=== PATIENT | male | born 1965 | race Caucasian/White ===

== ENCOUNTER 2018-05-14 20:24 | Emergency (ER) | payer MEDICAID, SELFPAY ==
[2018-05-14 20:34] VITALS: BP 147/123; PULSE 123; RESP 16; TEMP 36.9; O2SAT 95
[2018-05-14 20:41] VITALS: RESP 16
--- NOTE | 2018-05-14 20:44 | ED.GENADUL_ITS ---
Disposition Clinical Impression: Alcohol intoxication Disposition: [facility] Condition: Stable Instructions: Alcohol Intoxication (ED) Medical Decision Making - Lab Data Results reviewed for labs ordered during visit: Yes - EKG Data -: EKG Interpreted by Me EKG shows normal: sinus rhythm, axis, intervals, QRS complexes Rate: tachycardia Interpretation: no acute changes - Medical Decision Making Pt here with complaint of being intoxicated which on exam he is and depressed. Will send labs and monitor. HE appears anxious on exam and will treat with oral ativan. HE has chronic pain that is unchanged, do not suspect acute medical process causing his pain. Pt remains stable, labs unremarkable other than anion gap of 17 likely due to alcohol ketosis, etoh level is 96. Discussed with mental health and they are coming to evaluate, he is medically cleared to speak with them. Mental health evaluate and patient will be transferred to detention for alcohol intoxication, will be reevaluated when sober. Pt's current HR is 88 on my exam, and at this time has no complaints, is drinking fluids without problems here and has normal physical exam, normal lung exam, no abdominal pain and is cao4 - Differential Diagnosis depression, alcohol intoxication History of Present Illness - General Chief complaint: PsychEval Stated complaint: CHEST PAIN Time Seen by Provider: 05/14/18 20:29 Source: patient Mode of arrival: ambulatory Limitations: no limitations - History of Present Illness Initial comments: 53 yo male with hx of alcohol abuse comes in with chief complaint of I'm drunk. He states he has been drinking all day and starts crying during my exam, stating he wants to . Has no specific plans on my exam. He is complaining of pain everywhere and no where in particular. He denies chest pain or pressure on my exam or shortness of breath. HE has hx of chronic pain and states this pain is the same MD Complaint: intoxication Onset/Timin -: days(s) Improves with: none Worsens with: none - Related Data Buprenorphine/Naloxone [Suboxone 2 mg-0.5 mg Sl Film] 8 mg SL DAILY 12/10/15 Blood-Glucose Meter [Tiendeotouch Ultra2] 1 each as directed #1 kit 12/28/16 Aspirin 81 mg PO DAILY #90 tab-cap 03/30/17 Blood Sugar Diagnostic [Onetouch Ultra Blue Test Strp] 1 each BID #180 strip 10/21/17 Lancets [Onetouch Delica] 1 each ID BID #200 each 10/21/17 Blood-Glucose Meter [Onetouch Ultramini] 1 each MC DAILY #1 kit 01/09/18 Naltrexone HCl 50 mg PO DAILY tab-cap 01/13/18 Atorvastatin [Lipitor] 40 mg PO QPM #30 tab 05/08/18 Gabapentin [Neurontin] 300 mg PO BID #60 cap 05/08/18 Glipizide 10 mg PO BID #60 tab-cap 05/08/18 Lisinopril 30 mg PO DAILY #30 tab-cap 05/08/18 Magnesium Oxide [Mag-Ox 400] 800 mg PO BID@1000,2200 #60 tab 05/08/18 Metformin HCl 1,000 mg PO BID #60 tab-cap 05/08/18 Pantoprazole Sodium 40 mg PO DAILY #30 tab-cap 05/08/18 Propranolol HCl 30 mg PO BID #30 tab 05/08/18 Topiramate [Topamax] 50 mg PO DAILY #30 tab-cap 05/08/18 Venlafaxine HCl [Venlafaxine HCl ER] 75 mg PO DAILY #30 tab-cap 05/08/18 Allergies Allergy/AdvReac Type Severity Reaction Status Date / Time cephalexin monohydrate AdvReac Severe GI UPSET Unverified 05/14/18 20:38 [From Keflex] eszopiclone [From Lunesta] AdvReac bad taste Unverified 05/14/18 20:38 in mouth Review of Systems Constitutional: denies: fever Respiratory: denies: shortness of breath Cardiovascular: denies: chest pain Gastrointestinal: denies: abdominal pain, nausea, vomiting Musculoskeletal: denies: back pain Skin: denies: rash Neurological: denies: headache Psychiatric: depression, suicidal thoughts Comment: All other systems reviewed and negative Past Medical History - Past Medical History Medical history: CVA/TIA, diabetes, hyperlipidemia, hypertension - Social History Alcohol use: heavy, recent Drug use: none General Exam - General Limitations: no limitations General appearance: alert, other (crying) - Head Head exam: Present: atraumatic - Eye Eye exam: Present: normal apperance - ENT ENT exam: Present: mucous membranes moist - Neck Neck exam: Present: normal inspection - Respiratory Respiratory exam: Absent: respiratory distress - Cardiovascular Cardiovascular Exam: Present: normal rhythm, tachycardia, normal heart sounds - GI/Abdominal GI/Abdominal exam: Present: soft. Absent: tenderness - Extremities Exam Extremities exam: Present: normal inspection. Absent: pedal edema, calf tenderness - Neurological Exam Neurological exam: Present: alert, oriented X3 - Psychiatric Psychiatric exam: Present: depressed, suicidal ideation. Absent: homicidal ideation - Skin Skin exam: Present: warm Course Vital Signs - 24 hr 05/14/18 20:34 Temperature 98.4 F Pulse 123 H Respiratory 16 Rate Blood Pressure 147/123 Pulse Oximetry 95
[2018-05-14] MEDS: LORazepam 1 MG TAB PO (20:54)
[2018-05-14 21:33] LABS: *AMPHETAMINES SCREEN URINE Negative (Negative); *BARBITURATES SCREEN URINE Negative (Negative); *BENZODIAZEPINES SCREEN URINE Negative (Negative); Cannabinoids THC POSITIVE (Negative); Cocaine Screen,Urine Negative (Negative); METHADONE URINE SCREEN Negative (Negative); OPIATES URINE SCREEN Negative (Negative)
[2018-05-14 21:37] LABS: ALT 23 U/L (12-78); AST 13 U/L (15-37); Albumin 3.7 g/dL (3.4-5.0); Alkaline Phosphatase 57 U/L (46-116); Anion Gap 17.1 mmol/L (3-11); BUN 25 mg/dL (7-18); Bilirubin, Total 0.2 mg/dL (0.2-1.0); CO2 18.9 mmol/L (21.0-32.0); CREATININE 1.09 mg/dL (0.70-1.30); Chloride 105 mmol/L (98-107); ETHANOL BLOOD 96.2 mg/dL (<3); Glucose 92 mg/dL (70-100); Sodium 141 mmol/L (136-145); Total Protein 7.8 g/dL (6.4-8.2)
[2018-05-14 21:44] LABS: Tricyclic Antidepressants Negative (Negative)
[2018-05-14 21:46] LABS: Abs Immature Grans 0.02 k/cumm (0.0-0.09); Absolute Basophil Count 0.04 k/cumm (0.0-0.2); Absolute Eosinophil Count 0.06 k/cumm (0.0-0.7); Absolute Lymphocyte Count 2.98 k/cumm (1.2-3.4); Absolute Monocyte Count 0.52 k/cumm (0.11-0.7); Basophils % 0.4; Eosinophils % 0.6; HCT 41.7 % (40.0-50.0); HGB 14.1 g/dL (13.5-17.5); Immature Grans % 0.2; Mean Corp. HGB Concentration 33.8 g/dL (32.0-36.0); Mean Corpuscular Hemoglobin 30.3 pg (27.0-33.0); Mean Corpuscular Volume 89.5 fL (80-95); Mean Platelet Volume 9.8 fL (8.0-11.0); Monocytes % 5.2; Neutrophils % 63.6; Platelet Count 281 x1000/uL (130-400); RBC 4.66 m/cumm (4.50-6.00); RBC Distribution Width 14.2 % (11.8-14.1); White Blood Cell Count 9.92 k/cumm (4.4-10.8)
[2018-05-14 22:15] VITALS: BP 135/106; PULSE 102; RESP 16; O2SAT 97
[2018-05-14 22:36] LABS: Salicylate 4.2 mg/dL (2.8-20.0)
[2018-05-14 22:39] LABS: Acetaminophen < 2 ug/mL (10-30)
== END 2018-05-14 22:30 | disposition home or self-care (01) ==
PROVIDERS: Emergency Provider Emergency Medicine; PCP Family Medicine
DX: F10.129 Alcohol abuse with intoxication, unspecified (principal); Y90.4 Blood alcohol level of 80-99 mg/100 ml; F41.8 Other specified anxiety disorders; E11.9 Type 2 diabetes mellitus without complications; Z79.4 Long term (current) use of insulin; I10 Essential (primary) hypertension
CPT/HCPCS: 36415; 80053; 80307; 93005; 99285; 80320; 80329; 85025; 93010; 99284

== ENCOUNTER 2018-05-15 02:33 | Emergency (ER) | payer MEDICAID, SELFPAY ==
[2018-05-15 02:41] VITALS: BP 155/116; PULSE 107; RESP 16; TEMP 37; O2SAT 98
--- NOTE | 2018-05-15 02:45 | ED.GENADUL_ITS ---
Disposition Clinical Impression: Tremor Disposition: HOME Condition: Stable Instructions: Tremors (ED) Additional Instructions: IF you have persistent vomit, severe abdominal pain or difficulty breathing return to the emergency department. Follow up with your primary care provider this week Medical Decision Making - Medical Decision Making Pt here with tremors of his hands and actually ceases when he reaches for things. He has no other complaints at this time and is HD stable. I advised he can f/u with his pcp for temors and if other findings of alcohol withdrawal to arise he can return for reevaluation - Differential Diagnosis alcohol withdrawl, essential tremors History of Present Illness - General Chief complaint: GenMedical Stated complaint: CALEX Time Seen by Provider: 05/15/18 02:42 Source: patient Mode of arrival: EMS Limitations: no limitations - History of Present Illness Initial comments: 53 yo male who comes in by ems from half-way with tremors. HE drinks alcohol regularly and states he will get shaking in his arms sometimes. When he was seen in the ED earlier he was intoxicated and had SI, now that he is sober he denies si/hi. He has mild shaking of his hands otherwise normal gait and no other significant abnormalities on neuro exam. HR 88 on my exam and has no complaints otherwise. MD Complaint: tremors of hands Onset/Timin -: hour(s) Improves with: none Worsens with: none - Related Data Buprenorphine/Naloxone [Suboxone 2 mg-0.5 mg Sl Film] 8 mg SL DAILY 12/10/15 Blood-Glucose Meter [Onetouch Ultra2] 1 each MC as directed #1 kit 12/28/16 Aspirin 81 mg PO DAILY #90 tab-cap 03/30/17 Blood Sugar Diagnostic [Onetouch Ultra Blue Test Strp] 1 each MC BID #180 strip 10/21/17 Lancets [Onetouch Delica] 1 each ID BID #200 each 10/21/17 Blood-Glucose Meter [Onetouch Ultramini] 1 each MC DAILY #1 kit 01/09/18 Naltrexone HCl 50 mg PO DAILY tab-cap 01/13/18 Atorvastatin [Lipitor] 40 mg PO QPM #30 tab 05/08/18 Gabapentin [Neurontin] 300 mg PO BID #60 cap 05/08/18 Glipizide 10 mg PO BID #60 tab-cap 05/08/18 Lisinopril 30 mg PO DAILY #30 tab-cap 05/08/18 Magnesium Oxide [Mag-Ox 400] 800 mg PO BID@1000,2200 #60 tab 05/08/18 Metformin HCl 1,000 mg PO BID #60 tab-cap 05/08/18 Pantoprazole Sodium 40 mg PO DAILY #30 tab-cap 05/08/18 Propranolol HCl 30 mg PO BID #30 tab 05/08/18 Topiramate [Topamax] 50 mg PO DAILY #30 tab-cap 05/08/18 Venlafaxine HCl [Venlafaxine HCl ER] 75 mg PO DAILY #30 tab-cap 05/08/18 Allergies Allergy/AdvReac Type Severity Reaction Status Date / Time cephalexin monohydrate AdvReac Severe GI UPSET Unverified 05/14/18 20:38 [From Keflex] eszopiclone [From Lunesta] AdvReac bad taste Unverified 05/14/18 20:38 in mouth Review of Systems Constitutional: denies: chills, fever Respiratory: denies: shortness of breath Cardiovascular: denies: chest pain Gastrointestinal: denies: abdominal pain, nausea, vomiting Skin: denies: rash Neurological: denies: headache Psychiatric: denies: depression, auditory hallucinations, visual hallucinations , homicidal thoughts, suicidal thoughts Comment: All other systems reviewed and negative Past Medical History - Past Medical History Medical history: CVA/TIA, diabetes, hyperlipidemia, hypertension - Social History Alcohol use: heavy, recent Drug use: none General Exam - General Limitations: no limitations General appearance: alert, in no apparent distress - Head Head exam: Present: atraumatic - Eye Eye exam: Present: normal apperance, PERRL, EOMI - ENT ENT exam: Present: mucous membranes moist - Neck Neck exam: Present: normal inspection, full ROM. Absent: meningismus - Respiratory Respiratory exam: Absent: respiratory distress - Cardiovascular Cardiovascular Exam: Present: regular rate - GI/Abdominal GI/Abdominal exam: Present: soft. Absent: tenderness - Extremities Exam Extremities exam: Present: normal inspection. Absent: pedal edema - Neurological Exam Neurological exam: Present: alert, oriented X3, CN II-XII intact, normal gait. Absent: motor sensory deficit - Psychiatric Psychiatric exam: Present: normal affect - Skin Skin exam: Present: warm Course Vital Signs - 24 hr 08/06/18 02:41 Temperature 98.6 F Pulse 107 H Respiratory 16 Rate Blood Pressure 155/116 Pulse Oximetry 98
== END 2018-05-15 02:50 | disposition home or self-care (01) ==
PROVIDERS: Emergency Provider Emergency Medicine; PCP Family Medicine
DX: R25.1 Tremor, unspecified (principal); E11.9 Type 2 diabetes mellitus without complications; Z79.4 Long term (current) use of insulin; I10 Essential (primary) hypertension
CPT/HCPCS: 99283

== ENCOUNTER 2018-07-13 23:59 | Emergency (ER) | payer MEDICAID, SELFPAY ==
[2018-07-14 00:12] VITALS: BP 144/83; PULSE 100; RESP 18; TEMP 36.7; O2SAT 97
--- NOTE | 2018-07-14 00:24 | W.ED.GENAD ---
Discharge Plan Disposition Patient Disposition: [facility] Condition: Fair Discharge Details Chief Complaint: PsychEval Clinical Impression: Depression with suicidal ideation Reason For Visit: CALEX Primary Care Provider: Dung Calvin ED Provider: Michael Simon Home Meds and New Rx's Prescriptions: Continue dexmethylphenidate [Focalin XR] 40 mg capsule,ER biphasic 50-50 40 mg PO QAM Qty: 30 RF: 0 gabapentin 300 mg capsule 300 mg PO TID Qty: 90 RF: 5 glipizide 10 mg tablet 10 mg PO BID Qty: 180 RF: 3 topiramate 100 mg tablet 100 mg PO BID Qty: 180 RF: 3 pantoprazole 40 mg tablet,delayed release (DR/EC) 40 mg PO DAILY Qty: 90 RF: 3 metformin 1,000 mg tablet 1,000 mg PO BID Qty: 180 RF: 3 lisinopril 30 mg tablet 30 mg PO DAILY Qty: 90 RF: 3 naltrexone 50 mg tablet 50 mg PO DAILY Qty: 90 RF: 3 duloxetine 40 mg capsule,delayed release(DR/EC) 40 mg PO QAM Qty: 90 RF: 3 atorvastatin 40 mg tablet 40 mg PO QPM RF: 0 magnesium oxide 400 mg capsule 400 mg PO BID RF: 0 trazodone 50 mg tablet 50 - 100 mg PO HS PRN RF: 0 blood-glucose meter [OneTouch Ultra2] 1 EACH kit 1 ea Miscellaneous as directed Qty: 1 RF: 1 lancets [OneTouch Delica Lancets] 1 EACH misc 1 ea Intradermal BID Qty: 200 RF: 4 blood sugar diagnostic [OneTouch Ultra Test] 1 EACH strip 1 ea Miscellaneous BID Qty: 180 RF: 3 blood-glucose meter [OneTouch UltraMini] 1 EACH kit 1 ea Miscellaneous DAILY Qty: 1 RF: 0 Discharge Data Discharge Physician: Michael Simon Medical Decision Making 53 yo male comes in with complaints of worsening depression and SI. HE was just released from retirement after being icp'd and when they were releasing him when he was sober he said he was suicidal with plan to drink himself to so they called ems and he was brought here. 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 He is medically cleared to see mental health mental health evaluated and he is a voluntary psych bed search. NO sitter at this time so patient will remain in ED until sitter can be found. I am going to initiate librium therapy given his chronic alcohol use to hopefully prevent withdrawal symptoms pt remains stable, [facility] has accepted the patient. Will be transferred by Differential Diagnosis depression, si HPI General Mode of arrival: EMS. Date/Time Provider Initiated Documentation: 07/14/18 00:20. Limitations to Documentation: no limitations. Information obtained by: patient. History of Present Illness 53 year old M presents to the emergency department with the chief complaint of suicidal thoughts, Patient started experiencing this week(s) (1) and it has been constant. No relieving factors improve symptom(s), No exacerbating factors reported . Patient notes no other symptoms.. Patient did receive the following treatments prior to arrival, none Related Data Home Medications Medication Instructions Recorded Confirmed blood-glucose meter [OneTouch #1 kit 12/28/16 06/23/18 Ultra2] blood sugar diagnostic [OneTouch #180 strip 10/21/17 06/23/18 Ultra Test] lancets [OneTouch Delica Lancets] #200 ea 10/21/17 06/23/18 blood-glucose meter [OneTouch #1 kit 01/09/18 06/23/18 UltraMini] atorvastatin 40 mg tablet 40 mg PO QPM tab 06/20/18 07/14/18 magnesium oxide 400 mg capsule 400 mg PO BID cap 06/21/18 07/14/18 trazodone 50 mg tablet 50 - 100 mg PO HS PRN tab 06/21/18 07/14/18 dexmethylphenidate ER 40 mg 40 mg PO QAM #30 cap 06/23/18 07/14/18 capsule,extended release [id number] duloxetine 40 mg capsule,delayed 40 mg PO QAM #90 cap 06/23/18 07/14/18 release gabapentin 300 mg capsule 300 mg PO TID #90 cap 06/23/18 07/14/18 glipizide 10 mg tablet 10 mg PO BID #180 tab 06/23/18 07/14/18 lisinopril 30 mg tablet 30 mg PO DAILY #90 tab 06/23/18 07/14/18 metformin 1,000 mg tablet 1,000 mg PO BID #180 tab 06/23/18 07/14/18 naltrexone 50 mg tablet 50 mg PO DAILY #90 tab 06/23/18 07/14/18 pantoprazole 40 mg tablet,delayed 40 mg PO DAILY #90 tab 06/23/18 07/14/18 release topiramate 100 mg tablet 100 mg PO BID #180 tab 06/23/18 07/14/18 Previous Rx's Medication Instructions Recorded blood sugar diagnostic [OneTouch #180 strip 10/21/17 Ultra Test] lancets [OneTouch Delica Lancets] #200 ea 10/21/17 blood-glucose meter [OneTouch #1 kit 01/09/18 UltraMini] dexmethylphenidate ER 40 mg 40 mg PO QAM #30 cap 06/23/18 capsule,extended release [id number] duloxetine 40 mg capsule,delayed 40 mg PO QAM #90 cap 06/23/18 release gabapentin 300 mg capsule 300 mg PO TID #90 cap 06/23/18 glipizide 10 mg tablet 10 mg PO BID #180 tab 06/23/18 lisinopril 30 mg tablet 30 mg PO DAILY #90 tab 06/23/18 metformin 1,000 mg tablet 1,000 mg PO BID #180 tab 06/23/18 naltrexone 50 mg tablet 50 mg PO DAILY #90 tab 06/23/18 pantoprazole 40 mg tablet,delayed 40 mg PO DAILY #90 tab 06/23/18 release topiramate 100 mg tablet 100 mg PO BID #180 tab 06/23/18 Allergies Allergy/AdvReac Type Severity Reaction Status Date / Time cephalexin monohydrate AdvReac Severe GI UPSET Unverified 07/14/18 00:24 [From Keflex] eszopiclone [From Lunesta] AdvReac bad taste Unverified 07/14/18 00:24 in mouth General Stated Complaint: PsychEval BESSY: 2 Review of Systems Review of Systems All systems reviewed & are unremarkable except as noted in HPI and below Constitutional Denies weakness ENT Denies change in voice Cardiovascular Denies chest pain and Denies dyspnea Respiratory Denies dyspnea Gastrointestinal Denies abdominal pain, Denies nausea and Denies vomiting Genitourinary Denies dysuria Integumentary/Breasts Denies rash Neurologic Denies weakness Psychiatric Reports depression and Reports suicidal ideation Endocrine Denies cold intolerance and Denies heat intolerance Allergic/Immunologic Reports urticaria PFSH Family History Mother Substance abuse Father Heart disease Hyperlipidemia Brother Substance abuse Depression Hyperlipidemia Grandfather Essential hypertension Heart disease Neoplasm Cerebrovascular accident Grandfather Essential hypertension Heart disease Grandmother Essential hypertension Depression Heart disease Cerebrovascular accident Grandmother Essential hypertension Son No problems noted. Son No problems noted. Social History household members: other details: SELF current occupational status: employed current occupation: [employer] pets and animals: No frequency: daily duration: 45-60 minutes/day Smoking/Tobacco Use Status: Current every day alcohol intake: never substance use type: does not use bernard/adventism: Pentecostalism agree to transfusion: No Surgical History Colectomy fusion of disc hernia repair Exam Const General: no acute distress Orientation: alert HENMT Head: normal to inspection Ears: external ears normal General nose exam: external nose normal Mouth: moist mucous membranes Eyes General: appearance normal, both eyes and all related structures Neck Neck: normal visual inspection Resp Effort & Inspection: normal respiratory effort and able to speak in complete sentences Cardio Rate: regular rate Skin General skin exam: no rashes or lesions noted Neuro General: alert and oriented x3 Extrem General: normal to inspection Psych Appearance: other (SI) Course Vital Signs Temperature 36.7 C 07/14/18 00:12 Pulse 100 H 07/14/18 00:12 Respiratory Rate 18 07/14/18 00:12 Blood Pressure 144/83 H 07/14/18 00:12 Pulse Oximetry 97 07/14/18 00:12 Temperature 36.7 C 07/14/18 00:12 Temperature Source Temporal Artery Scan 07/14/18 00:12 Pulse 100 H 07/14/18 00:12 Respiratory Rate 18 07/14/18 00:12 Respiratory Effort 07/14/18 00:12 Blood Pressure 144/83 H 07/14/18 00:12 Pulse Oximetry 97 07/14/18 00:12 Oxygen Delivery Method Room Air 07/14/18 00:12 Oxygen Flow Rate 0 07/14/18 00:12 Pain Level 7 07/14/18 00:12
--- NOTE | 2018-07-14 00:29 | ED.GENADUL_ITS ---
Discharge Plan Disposition Patient Disposition: [facility] Condition: Fair Discharge Details Chief Complaint: PsychEval Clinical Impression: Depression with suicidal ideation Reason For Visit: CALEX Primary Care Provider: Dung Calvin ED Provider: Michael Simon Home Meds and New Rx's Prescriptions: Continue dexmethylphenidate [Focalin XR] 40 mg capsule,ER biphasic 50-50 40 mg PO QAM Qty: 30 RF: 0 gabapentin 300 mg capsule 300 mg PO TID Qty: 90 RF: 5 glipizide 10 mg tablet 10 mg PO BID Qty: 180 RF: 3 topiramate 100 mg tablet 100 mg PO BID Qty: 180 RF: 3 pantoprazole 40 mg tablet,delayed release (DR/EC) 40 mg PO DAILY Qty: 90 RF: 3 metformin 1,000 mg tablet 1,000 mg PO BID Qty: 180 RF: 3 lisinopril 30 mg tablet 30 mg PO DAILY Qty: 90 RF: 3 naltrexone 50 mg tablet 50 mg PO DAILY Qty: 90 RF: 3 duloxetine 40 mg capsule,delayed release(DR/EC) 40 mg PO QAM Qty: 90 RF: 3 atorvastatin 40 mg tablet 40 mg PO QPM RF: 0 magnesium oxide 400 mg capsule 400 mg PO BID RF: 0 trazodone 50 mg tablet 50 - 100 mg PO HS PRN RF: 0 blood-glucose meter [OneTouch Ultra2] 1 EACH kit 1 ea Miscellaneous as directed Qty: 1 RF: 1 lancets [OneTouch Delica Lancets] 1 EACH misc 1 ea Intradermal BID Qty: 200 RF: 4 blood sugar diagnostic [OneTouch Ultra Test] 1 EACH strip 1 ea Miscellaneous BID Qty: 180 RF: 3 blood-glucose meter [OneTouch UltraMini] 1 EACH kit 1 ea Miscellaneous DAILY Qty: 1 RF: 0 Discharge Data Discharge Physician: Michael Simon Medical Decision Making 53 yo male comes in with complaints of worsening depression and SI. HE was just released from long-term after being icp'd and when they were releasing him when he was sober he said he was suicidal with plan to drink himself to so they called ems and he was brought here. He has no headaches or other symptoms, normal neuro exam so doubt pathology such as customer greeter infection or acute endocrine disorder. He is medically cleared to see mental health mental health evaluated and he is a voluntary psych bed search. NO sitter at this time so patient will remain in ED until sitter can be found. I am going to initiate librium therapy given his chronic alcohol use to hopefully prevent withdrawal symptoms pt remains stable, [facility] has accepted the patient. Will be transferred by Differential Diagnosis depression, si HPI General Mode of arrival: EMS . Date/Time Provider Initiated Documentation: 07/14/18 00:20 . Limitations to Documentation: no limitations . Information obtained by: patient . History of Present Illness 53 year old M presents to the emergency department with the chief complaint of suicidal thoughts, Patient started experiencing this week(s) (1) and it has been constant. No relieving factors improve symptom(s), No exacerbating factors reported . Patient notes no other symptoms.. Patient did receive the following treatments prior to arrival, none Related Data Home Medications Medication Instructions Recorded Confirmed blood-glucose meter [OneTouch #1 kit 12/28/16 06/23/18 Ultra2] blood sugar diagnostic [OneTouch #180 strip 10/21/17 06/23/18 Ultra Test] lancets [OneTouch Delica Lancets] #200 ea 10/21/17 06/23/18 blood-glucose meter [OneTouch #1 kit 01/09/18 06/23/18 UltraMini] atorvastatin 40 mg tablet 40 mg PO QPM tab 06/20/18 07/14/18 magnesium oxide 400 mg capsule 400 mg PO BID cap 06/21/18 07/14/18 trazodone 50 mg tablet 50 - 100 mg PO HS PRN tab 06/21/18 07/14/18 dexmethylphenidate ER 40 mg 40 mg PO QAM #30 cap 06/23/18 07/14/18 capsule,extended release [id number] duloxetine 40 mg capsule,delayed 40 mg PO QAM #90 cap 06/23/18 07/14/18 release gabapentin 300 mg capsule 300 mg PO TID #90 cap 06/23/18 07/14/18 glipizide 10 mg tablet 10 mg PO BID #180 tab 06/23/18 07/14/18 lisinopril 30 mg tablet 30 mg PO DAILY #90 tab 06/23/18 07/14/18 metformin 1,000 mg tablet 1,000 mg PO BID #180 tab 06/23/18 07/14/18 naltrexone 50 mg tablet 50 mg PO DAILY #90 tab 06/23/18 07/14/18 pantoprazole 40 mg tablet,delayed 40 mg PO DAILY #90 tab 06/23/18 07/14/18 release topiramate 100 mg tablet 100 mg PO BID #180 tab 06/23/18 07/14/18 Previous Rx's Medication Instructions Recorded blood sugar diagnostic [OneTouch #180 strip 10/21/17 Ultra Test] lancets [OneTouch Delica Lancets] #200 ea 10/21/17 blood-glucose meter [OneTouch #1 kit 01/09/18 UltraMini] dexmethylphenidate ER 40 mg 40 mg PO QAM #30 cap 06/23/18 capsule,extended release [id number] duloxetine 40 mg capsule,delayed 40 mg PO QAM #90 cap 06/23/18 release gabapentin 300 mg capsule 300 mg PO TID #90 cap 06/23/18 glipizide 10 mg tablet 10 mg PO BID #180 tab 06/23/18 lisinopril 30 mg tablet 30 mg PO DAILY #90 tab 06/23/18 metformin 1,000 mg tablet 1,000 mg PO BID #180 tab 06/23/18 naltrexone 50 mg tablet 50 mg PO DAILY #90 tab 06/23/18 pantoprazole 40 mg tablet,delayed 40 mg PO DAILY #90 tab 06/23/18 release topiramate 100 mg tablet 100 mg PO BID #180 tab 06/23/18 Allergies Allergy/AdvReac Type Severity Reaction Status Date / Time cephalexin monohydrate AdvReac Severe GI UPSET Unverified 07/14/18 00:24 [From Keflex] eszopiclone [From Lunesta] AdvReac bad taste Unverified 07/14/18 00:24 in mouth General Stated Complaint: PsychEval BESSY: 2 Review of Systems Review of Systems All systems reviewed & are unremarkable except as noted in HPI and below Constitutional Denies weakness ENT Denies change in voice Cardiovascular Denies chest pain and Denies dyspnea Respiratory Denies dyspnea Gastrointestinal Denies abdominal pain, Denies nausea and Denies vomiting Genitourinary Denies dysuria Integumentary/Breasts Denies rash Neurologic Denies weakness Psychiatric Reports depression and Reports suicidal ideation Endocrine Denies cold intolerance and Denies heat intolerance Allergic/Immunologic Reports urticaria PFSH Family History Mother Substance abuse Father Heart disease Hyperlipidemia Brother Substance abuse Depression Hyperlipidemia Grandfather Essential hypertension Heart disease Neoplasm Cerebrovascular accident Grandfather Essential hypertension Heart disease Grandmother Essential hypertension Depression Heart disease Cerebrovascular accident Grandmother Essential hypertension Son No problems noted. Son No problems noted. Social History household members: other details: SELF current occupational status: employed current occupation: [employer] pets and animals: No frequency: daily duration: 45-60 minutes/day Smoking/Tobacco Use Status: Current every day alcohol intake: never substance use type: does not use bernard/episcopalian: Methodist agree to transfusion: No Surgical History Colectomy fusion of disc hernia repair Exam Const General: no acute distress Orientation: alert HENMT Head: normal to inspection Ears: external ears normal General nose exam: external nose normal Mouth: moist mucous membranes Eyes General: appearance normal, both eyes and all related structures Neck Neck: normal visual inspection Resp Effort & Inspection: normal respiratory effort and able to speak in complete sentences Cardio Rate: regular rate Skin General skin exam: no rashes or lesions noted Neuro General: alert and oriented x3 Extrem General: normal to inspection Psych Appearance: other (SI) Course Vital Signs Temperature 36.7 C 07/14/18 00:12 Pulse 100 H 07/14/18 00:12 Respiratory Rate 18 07/14/18 00:12 Blood Pressure 144/83 H 07/14/18 00:12 Pulse Oximetry 97 07/14/18 00:12 Temperature 36.7 C 07/14/18 00:12 Temperature Source Temporal Artery Scan 07/14/18 00:12 Pulse 100 H 07/14/18 00:12 Respiratory Rate 18 07/14/18 00:12 Respiratory Effort 07/14/18 00:12 Blood Pressure 144/83 H 07/14/18 00:12 Pulse Oximetry 97 07/14/18 00:12 Oxygen Delivery Method Room Air 07/14/18 00:12 Oxygen Flow Rate 0 07/14/18 00:12 Pain Level 7 07/14/18 00:12
[2018-07-14 00:42] LABS: Abs Immature Grans 0.01 k/cumm (0.0-0.09); Absolute Basophil Count 0.03 k/cumm (0.0-0.2); Absolute Eosinophil Count 0.07 k/cumm (0.0-0.7); Absolute Lymphocyte Count 1.88 k/cumm (1.2-3.4); Absolute Monocyte Count 0.87 k/cumm (0.11-0.7); Absolute Neutrophil Count 5.41 k/cumm (1.2-6.7); Basophils % 0.4; Eosinophils % 0.8; HCT 40.2 % (40.0-50.0); HGB 13.5 g/dL (13.5-17.5); Immature Grans % 0.1; Lymphocytes % 22.7; Mean Corp. HGB Concentration 33.6 g/dL (32.0-36.0); Mean Corpuscular Hemoglobin 29.7 pg (27.0-33.0); Mean Corpuscular Volume 88.5 fL (80-95); Mean Platelet Volume 9.3 fL (8.0-11.0); Monocytes % 10.5; Neutrophils % 65.5; Platelet Count 247 x1000/uL (130-400); RBC 4.54 m/cumm (4.50-6.00); RBC Distribution Width 14.6 % (11.8-14.1); White Blood Cell Count 8.27 k/cumm (4.4-10.8)
[2018-07-14 00:57] LABS: *AMPHETAMINES SCREEN URINE Negative (Negative); *BARBITURATES SCREEN URINE Negative (Negative); *BENZODIAZEPINES SCREEN URINE Negative (Negative); Cannabinoids THC POSITIVE (Negative); Cocaine Screen,Urine Negative (Negative); METHADONE URINE SCREEN Negative (Negative); OPIATES URINE SCREEN Negative (Negative)
[2018-07-14 01:00] LABS: Tricyclic Antidepressants Negative (Negative)
[2018-07-14 01:07] LABS: ALT 39 U/L (12-78); AST 29 U/L (15-37); Albumin 3.6 g/dL (3.4-5.0); Alkaline Phosphatase 70 U/L (46-116); Anion Gap 13.3 mmol/L (3-11); BUN 12 mg/dL (7-18); Bilirubin, Total 0.5 mg/dL (0.2-1.0); CO2 23.7 mmol/L (21.0-32.0); CREATININE 0.88 mg/dL (0.70-1.30); Calcium 8.8 mg/dL (8.5-10.1); Chloride 99 mmol/L (98-107); ETHANOL BLOOD < 3.0 mg/dL (<3); Glucose 160 mg/dL (70-100); Potassium 4.3 mmol/L (3.5-5.1); Sodium 136 mmol/L (136-145); TSH (W/Ref FT4) 0.79 uIU/mL (0.358-3.74); Total Protein 7.4 g/dL (6.4-8.2)
--- NOTE | 2018-07-14 01:12 | PDOC.MHCN ---
Date of service: 07/14/18 Time of Service: 01:12 Mental Health Crisis Note Presenting Issue How did you arrive at the ED and why did you come: Patient arrived at the Emergency Department via ambulance after expressing thoughts of suicide to another mental health worker who was releasing him from the custody of [facility]. He was initially brought in to the correctional facility to detox. His current DONNA is 0.0. Precipitating Factors Patient is actively suicidal and states that he has nothing to live for. The patients plan is to drink himself to . Disposition BEHAVIOR: No abnormal behavior to report EYE CONTACT: Direct MOOD: Patient is tearful but willing and wanting to get help AFFECT: Appropriate for conversation APPETITE: Patient states that he hasn't really eaten in days SLEEP(trouble falling/staying asleep: Patient states that he hasn't really slept in days Plan Due to the patient being actively suicidal he will remain at the hospital until a bed becomes available at a mental health treatment facility. [facility]. Signature Clinician's Name/Title: Christina Vargas - [facility] Emergency Clinician
[2018-07-14 01:20] LABS: Salicylate 3.3 mg/dL (2.8-20.0)
[2018-07-14 01:21] LABS: Acetaminophen < 2 ug/mL (10-30)
--- NOTE | 2018-07-14 01:21 | PDOC.MHCN_ITS ---
Date of service: 07/14/18 Time of Service: 01:12 Mental Health Crisis Note Presenting Issue How did you arrive at the ED and why did you come: Patient arrived at the Emergency Department via ambulance after expressing thoughts of suicide to another mental health worker who was releasing him from the custody of [facility]. He was initially brought in to the correctional facility to detox. His current DONNA is 0.0. Precipitating Factors Patient is actively suicidal and states that he has nothing to live for. The patients plan is to drink himself to . Disposition BEHAVIOR: No abnormal behavior to report EYE CONTACT: Direct MOOD: Patient is tearful but willing and wanting to get help AFFECT: Appropriate for conversation APPETITE: Patient states that he hasn't really eaten in days SLEEP(trouble falling/staying asleep: Patient states that he hasn't really slept in days Plan Due to the patient being actively suicidal he will remain at the hospital until a bed becomes available at a mental health treatment facility. [facility]. Signature Clinician's Name/Title: Christina Vargas - [facility] Emergency Clinician
[2018-07-14] MEDS: chlordiazePOXIDE 25 MG CAP 50 MG PO (02:50)
--- NOTE | 2018-07-14 03:08 | CMPROGNOTE_ITS ---
- If Service Date Differs Date of service: 07/14/18 Time of Service: 03:07 Care Management Progress Note Blayne is a 53 year old male with a long history of depression, bipolar, alcoholism, opioid dependency, migraines, DM, coronary artery disease, hypertension and embolic CVA. He reports that he has not been taking any of his medication including his Cymbalta for his depression. In the past he has worked closely with Diana Brown APRN psychiatric provider in [place], [place]. He has also received support services through [facility]. Laith is tearful when meeting with CM, he states that he does not have anything to live for. He reports to mental health that he wants to ?drink himself to ?. Laith has a history of ECT treatments for his depression at [facility] which he has not had since his stroke. Laith denies support system states his mother is living in [place], [place] he does not know how to contact her. He is estranged from his Brother and he reports a supportive relationship with his niece Shashank. Laith is currently homeless he is living out of his RV which is parked at the [facility] in [place], [place]. Blayne reports to nurse that his last use of alcohol was the morning of 07/13/18. Per provider CIWA scale will be implemented to assess for withdrawal symptoms and treat as ordered by MD. Laith is VOLUNTARY FOR INPATIENT PSYCHIATRIC STABILIZATION. He has been cooperative and appropriate in all interactions since arriving at [facility]; he has demonstrated appropriate coping and communication skills, has articulated his needs and concerns and is weepy but engaged during conversations. Laith is asking for in-patient admission to psychiatric facility for treatment and psychiatric stabilization. Huddle Participants: Berenice RN, Kamryn, RN supervisor graphite, Christina Ernandez, [facility] frontline crisis and LETICIA aPrrish, . Time and Date: 07/14/2018 at 02:00 Safety plan has been established with patient, and care team, to adhere to patient goals, identify restrictions based on behavioral status, address nutrition, and determine allowed personal belongings, tools for hygiene and personal care. Determine level of activity including ambulation, level of supervision, visitors, and determine privileges based on behaviors and level of engagement by pt. SAFETY PLAN: 07/14/2018 1. Will remain on suicide precautions and in paper clothes. 2. Will remain in room under direct supervision of one-on-one staff at all times provided by ANA MARIA, PATIENT SERVICE REPRESENTATIVE laborer chemical processing. 3. May have paper cups, plates, finger foods as well as a metal spoon with which to eat meals. [facility] staff will be responsible for accounting of utensils after meals. 4. Follow [facility] Management of the Admitted Behavioral Health Patient policy. 5. Comfort bath system only. 6. No personal belongings 7. May have visitor Shashank (niece) and phone call with his Mother if she calls in. 8. Laith may have a TV with remote if he is transferred to the medical surgical unit. [facility], crisis Christina Vargas will be coordinating placement at inpatient facility, last updates included the following: Referral?s sent to [facility] in [place], [place]. [facility] is reviewing and currently has no bed availability. Mental health will contact ED with updates at 0830 am. Patient is currently voluntarily at [facility] and seeking inpatient admission when a bed becomes available. [facility] Frontline Pipe Connector will continue seeking placement. Please contact the [employer] Liaison Officer ([phone]) and [facility] Pipe Connector ([phone]) for any needed changes in the Safety Plan. Safety plan has been provided to interdepartmental care team including Clinical Coordinator, Nursing Healthcare Facility Administrator.
[2018-07-14] MEDS: LORazepam 1 MG TAB PO ×2 (04:32→07:56)
--- NOTE | 2018-07-14 04:48 | NUR.NOTE ---
Nursing Note: pt did get something to eat about 0300 hrs
--- NOTE | 2018-07-14 04:50 | NUR.NOTE ---
Nursing Note: pt did excepted to [facility], will be transported at about 0800
[2018-07-14 08:14] VITALS: BP 144/83; PULSE 100; RESP 18; TEMP 36.7; O2SAT 97
--- NOTE | 2018-07-17 08:50 | CMPROGNOTE_ITS ---
Care Management Progress Note CARMELO Weston called to report she had reached out to Blayne who had an 1100 appointment with Zen[facility], without success. Blayne discharged from the ED to [place] on 07/13/18 and is unavailable to meet with Zeny in the community at this time. Zeny reported she would continue to reach out to Blayne.
== END 2018-07-14 08:14 | disposition short-term general hospital (02) ==
PROVIDERS: Emergency Provider Emergency Medicine; PCP Family Medicine
DX: F32.9 Major depressive disorder, single episode, unspecified (principal); R45.851 Suicidal ideations; I10 Essential (primary) hypertension; E11.9 Type 2 diabetes mellitus without complications; Z79.4 Long term (current) use of insulin
CPT/HCPCS: 80053; 80307; 99285; 80320; 80329; 84443; 85025; 99284